=== PATIENT | male | born 1995 | race American Indian/Alaskan Native ===

== ENCOUNTER 2020-03-28 19:44 | Emergency (ER) | payer SELFPAY ==
[2020-03-28] MEDS ORDERED: dexAMETHasone 20 MG/5 ML VIAL ONE (19:56)
[2020-03-28] MEDS ORDERED: FAMOTIDINE 20 MG TAB ONE (19:56)
[2020-03-28] MEDS ORDERED: dexAMETHasone 20 MG/5 ML VIAL IM ONE (20:01)
[2020-03-28] MEDS ORDERED: FAMOTIDINE 20 MG TAB PO ONE (20:03)
--- NOTE | 2020-03-28 21:53 | Emergency Department Report ---
ED Allergic Reaction HPI - General Chief complaint: Allergic Reaction Stated complaint: ALLERGIC REACTION Time Seen by Provider: 03/28/20 20:18 Source: patient Mode of arrival: Ambulatory Limitations: No Limitations - History of Present Illness Initial Comments: Patient is a 25-year-old male presents emergency room with complaints of allergic reaction that occurred around 7:25 PM tonight. Patient states that he was stung by a wasp or hornet to the left elbow. He states immediately he began to feel itching and broke out in hives. He states that he took 2 tablets of Benadryl. He states that he felt like he had a small amount of swelling in his cheeks. He denies any shortness of breath, tongue swelling, lip swelling, sensation of throat closing, difficulty swallowing. He denies ever being stung before. He denies any past medical history. He states that his only known allergies are to penicillins. - Related Data Previous Rx's Medication Instructions Recorded Last Taken Type EPINEPHrine [Epipen 2-Rikki] 0.3 mg IJ ONCE PRN #0.3 ml 03/28/20 Unknown Rx Famotidine [Pepcid] 40 mg PO QHS #10 tablet 03/28/20 Unknown Rx Prednisone [predniSONE 10 mg 10 mg PO .TAPER #1 tab.ds.pk 03/28/20 Unknown Rx (6-Day Pack, 21 Tabs)] diphenhydrAMINE [Benadryl CAP] 50 mg PO Q8HR PRN #20 capsule 03/28/20 Unknown Rx Allergies Allergy/AdvReac Type Severity Reaction Status Date / Time amoxicillin Allergy Hives Verified 03/28/20 20:00 Penicillins Allergy Hives Verified 03/28/20 20:00 ED Review of Systems ROS: Stated complaint: ALLERGIC REACTION Other details as noted in HPI Comment: All other systems reviewed and negative ED Past Medical Hx - Past Medical History Previous Medical History?: No - Surgical History Past Surgical History?: No - Social History Smoking Status: Never Smoker Substance Use Type: None - Medications Home Medications: Home Medications Medication Instructions Recorded Confirmed Last Taken Type EPINEPHrine [Epipen 2-Rikki] 0.3 mg IJ ONCE PRN #0.3 ml 03/28/20 Unknown Rx Famotidine [Pepcid] 40 mg PO QHS #10 tablet 03/28/20 Unknown Rx Prednisone [predniSONE 10 mg 10 mg PO .TAPER #1 tab.ds.pk 03/28/20 Unknown Rx (6-Day Pack, 21 Tabs)] diphenhydrAMINE [Benadryl CAP] 50 mg PO Q8HR PRN #20 capsule 03/28/20 Unknown Rx ED Physical Exam - General Limitations: No Limitations General appearance: alert, in no apparent distress - Head Head exam: Present: atraumatic, normocephalic - Eye Eye exam: Present: normal appearance - ENT ENT exam: Present: normal orophraynx, mucous membranes moist, other (no angioedema, no lip edema, no tongue edema, uvula is midline, no uvular edema or deviation) - Respiratory Respiratory exam: Present: normal lung sounds bilaterally. Absent: respiratory distress, wheezes, rales, rhonchi, stridor, chest wall tenderness, accessory muscle use, decreased breath sounds, prolonged expiratory - Cardiovascular Cardiovascular Exam: Present: regular rate, normal rhythm, normal heart sounds. Absent: systolic murmur, diastolic murmur, rubs, gallop - Neurological Exam Neurological exam: Present: alert, oriented X3 - Psychiatric Psychiatric exam: Present: normal affect, normal mood - Skin Skin exam: Present: warm, dry, intact, other (mild erythema present to the BUE, no rash, no urticaria ) ED Course Vital Signs 03/28/20 03/28/20 19:50 22:12 Temperature 98.0 F 98.2 F Pulse Rate 103 H 72 Respiratory 18 18 Rate Blood Pressure 123/74 Blood Pressure 115/81 [Left] O2 Sat by Pulse 96 98 Oximetry ED Medical Decision Making - Lab Data Vital Signs 03/28/20 03/28/20 19:50 22:12 Temperature 98.0 F 98.2 F Pulse Rate 103 H 72 Respiratory 18 18 Rate Blood Pressure 123/74 Blood Pressure 115/81 [Left] O2 Sat by Pulse 96 98 Oximetry - Medical Decision Making Patient is a 25-year-old male presents emergency room with complaints of allergic reaction that occurred around 7:25 PM tonight. Patient states that he was stung by a wasp or hornet to the left elbow. He states immediately he began to feel itching and broke out in hives. He states that he took 2 tablets of Benadryl. He states that he felt like he had a small amount of swelling in his cheeks. He denies any shortness of breath, tongue swelling, lip swelling, sensation of throat closing, difficulty swallowing. He denies ever being stung before. He denies any past medical history. He states that his only known allergies are to penicillins. vss. Medications given by nurse prior to my examination. Patient states that he feels much better after medications and that his hives and itching resolved. Patient was given Decadron IM and Pepcid PO. He has no signs of urticaria currently, no signs of angioedema, breath sounds are clear, no stridor, uvula is midline, no uvular edema or deviation. He has some mild erythema in the bilateral upper extremities likely secondary to his scratching previously. He states his itching has resolved. Patient given prescription for prednisone Dosepak, Benadryl, Pepcid, ibuprofen. Discussed with patient that if he ever gets stung again the reaction could be worse and that he always needs to carry the EpiPen, discussed angioedema and anaphylaxis with patient. Advised patient to please use medication as prescribed. Please follow-up with your primary care doctor in the next 2 days for reexamination. Return to the emergency room immediately for any new or worsening symptoms. Please use EpiPen for signs of anaphylaxis and call 911 or present yourself to the emergency room immediately. Critical care attestation.: If time is entered above; I have spent that time in minutes in the direct care of this critically ill patient, excluding procedure time. ED Disposition Clinical Impression: Allergic reaction Qualifiers: Encounter type: initial encounter Qualified Code(s): T78.40XA - Allergy, unspecified, initial encounter Disposition: TO HOME OR SELFCARE Is pt being admited?: No Does the pt Need Aspirin: No Condition: Stable Instructions: Anaphylaxis (ED), Allergies (ED) Additional Instructions: please use medication as prescribed. Please follow-up with your primary care doctor in the next 2 days for reexamination. Return to the emergency room immediately for any new or worsening symptoms. Please use EpiPen for signs of anaphylaxis and call 911 or present yourself to the emergency room immediately. Prescriptions: Famotidine [Pepcid] 40 mg PO QHS #10 tablet diphenhydrAMINE [Benadryl CAP] 50 mg PO Q8HR PRN #20 capsule PRN Reason: Itching EPINEPHrine [Epipen 2-Rikki] 0.3 mg IJ ONCE PRN #0.3 ml PRN Reason: Anaphylaxis Prednisone [predniSONE 10 mg (6-Day Pack, 21 Tabs)] 10 mg PO .TAPER #1 tab.ds.pk Referrals: JOCELYNN ROSARIO MD [Staff Physician] - 2-3 Days [facility] [Provider Group] - 2-3 Days [facility] [Outside] - 2-3 Days Time of Disposition: 21:54 Print Language: PORTUGUESE
[2020-03-28 22:13] VITALS: BP 115/81
== END 2020-03-28 22:31 | disposition home or self-care (01) ==
LOC: ED 19:44
DX: T78.40XA Allergy, unspecified, initial encounter (principal); Z79.899 Other long term (current) drug therapy; Z88.0 Allergy status to penicillin; Z88.1 Allergy status to other antibiotic agents
CPT/HCPCS: 96372; 99282; J1100